=== PATIENT | female | born 1965 | race Caucasian/White ===

== ENCOUNTER 2020-12-05 00:59 | Emergency (ER) | payer SELFPAY ==
--- NOTE | ~2020-12-05 | XR_ITS ---
EXAMINATION: XR CHEST CLINICAL INFORMATION: Right chest pain COMPARISON: None TECHNIQUE: Frontal view of the chest was obtained. FINDINGS: Chronic lung markings. Streaky opacity at left lung base, likely subsegmental atelectasis. Normal heart size and pulmonary vascularity. Aorta is atherosclerotic. Chronic degenerative change and healed fracture deformity of the proximal right humerus. Healed right-sided rib fractures. XR/XR chest 1V IMPRESSION: No acute findings
[2020-12-05 01:11] VITALS: BP 145/89; PULSE 100; RESP 19; TEMP 36.7; O2SAT 97; BMI 20.1
[2020-12-05 01:13] LABS: Glucose, Whole Blood 93 mg/dL (60-115)
--- NOTE | 2020-12-05 01:21 | ED_ITS ---
HPI - Alcohol General Chief Complaint: ETOH/Substance Use Stated Complaint: ETOH INTOXICATION Time Seen by Provider: 12/05/20 01:08 Source: patient, EMS and record librarian Mode of arrival: ambulatory Limitations: no limitations History of Present Illness HPI narrative: 55-year-old female brought in by ambulance for evaluation for alcohol intoxication. This is a 55 year female brought in by ambulance patient was sitting on the sidewalk in the street admitting that she drink alcohol and she is intoxicated, patient also stated that she has been having does intermittent severe crampy pain to the right side of the chest and the right shoulder, patient while in the ED had waves of screaming from pain in the right chest and right shoulder. Patient appears and acting as intoxicated. Related Data Allergies Allergy/AdvReac Type Severity Reaction Status Date / Time No Known Allergies Allergy Verified 12/05/20 01:08 Review of Systems Review of Systems: All other systems are reviewed and are negative Constitutional: Reports as per HPI and Reports no additional constitutional complaints Eyes: Reports as per HPI and Reports no additional eye complaints Reports system reviewed and no additional complaints, except as documented Cardiovascular: Reports as per HPI and Reports no additional cardiovascular complaints Respiratory: Reports as per HPI and Reports no additional respiratory complaints Gastrointestinal: Reports as per HPI and Reports no additional gastrointestinal complaints Genitourinary: Reports no additional female genitourinary complaints Musculoskeletal: Reports no additional musculoskeletal complaints Skin/Breast: Reports system reviewed and no additional complaints, except as docu Psychiatric: Reports no additional psychiatric complaints Endocrine: Reports no additional endocrine complaints Hematologic/Lymphatic: Reports no additional hematologic/lymphatic complaints Allergic/Immunologic: Reports no additional allergic/immunologic complaints Reports system reviewed and no additional complaints, except as documented and Reports Abnormal speech present [facility] Past Medical History Medical History Anxiety Depression Diabetes Hypertension Social History Social History Advance Directives: No Advance Directives Information Provided: Yes Patient : No Physical Exam Vital Signs: Vital Signs: Last Vital Signs Temp 98.0 F 12/05/20 01:11 Pulse 100 12/05/20 01:11 Resp 19 12/05/20 01:11 BP 145/89 H 12/05/20 01:11 Pulse Ox 97 12/05/20 01:11 Body Mass Index 20.1 Vital signs have been reviewed as appeared to be correct. Blood pressure normal. Heart rate normal. Respiration rate normal. Temperature normal. Oxygen saturation normal. Appearance: Alert. Oriented X3. No acute distress. Head: Normal external exam. Normocephalic. Atraumatic. No Ayon signs noted. No raccoon eyes noted Eyes: PERRLA. EOMI. Conjunctiva and sclera normal. Eyelids normal. ENT: TM's Normal. Pharynx normal. Uvula midline. Moist mucous membranes. No trismus noted. No drooling noted. No muffled voice noted. Neck: Normal inspection. Neck supple. FROM. No adenopathy. Thyroid Normal. No meningeal signs. No neck mass noted. CVS: Normal heart rate and rhythm. Heart sound normal. No murmurs noted. Pulses normal throughout. Respiratory: No respiratory distress. Painless inspiration. Breath sounds normal. No wheezes/rales/rhonchi noted. Chest nontender. No accessory muscle usage noted or decreased air movement noted. Abdomen: Soft and nontender. Bowel sounds normal in all 4 quadrants. No distention noted. No organomegaly noted. No visible injury noted. Back: No CVA tenderness. Full range of motion noted. Skin: Skin warm and dry. Normal skin color. Normal skin turgor. No rashes/lesions/lacerations noted. Extremities: No lower extremity edema. Extremities exhibit normal range of motion. Extremities nontender. Neuro: Oriented X 3. No motor deficit. No sensory deficit. Reflexes normal. Course Course Course Narrative: Assessment and plan. 55-year-old female came in with alcohol intoxication. Chest x-ray was unremarkable, waiting for patient to sober up and can be discharged. [facility] Alcohol Medical Records Attestation: I reviewed the patient's medical records. Lab Data Attestation: I reviewed the patient's lab results. Labs: Lab Results 12/05/20 12/05/20 Range/Units 01:08 02:30 POC Glucose 93 (60-115) mg/dL Ethyl Alcohol 329 H* mg/dL Imaging Data Chest x-ray: Radiologist's impression: No acute findings. Discharge Plan Discharge Clinical Impression: Anterior chest wall pain Alcoholic intoxication Qualifiers: Complication of substance-induced condition: uncomplicated Qualified Code(s): F10.920 - Alcohol use, unspecified with intoxication, uncomplicated Patient Disposition: Home, Self-Care Instructions: Alcohol Intoxication (ED) Referrals: Physician,Unknown [Primary Care Provider] - 2 days
[2020-12-05] MEDS: Ibuprofen 600 MG TABLET PO (02:27)
[2020-12-05 03:09] LABS: Ethanol 329 mg/dL
[2020-12-05 09:32] VITALS: BP 172/73; PULSE 77; RESP 20; O2SAT 98
== END 2020-12-05 10:47 | disposition home or self-care (01) ==
LOC: HO.ED 06:51
PROVIDERS: Emergency Provider Emergency Medicine
DX: F10.129 Alcohol abuse with intoxication, unspecified (principal); R07.89 Other chest pain; Y90.8 Blood alcohol level of 240 mg/100 ml or more; I10 Essential (primary) hypertension; Z79.899 Other long term (current) drug therapy
CPT/HCPCS: 36415; 71045; 82077; 82947; 99285